=== PATIENT | female | born 1950 | race Caucasian/White ===

== ENCOUNTER 2018-11-09 10:29 | Outpatient (CLI) | payer MEDICARE, BC ==
[2018-11-09 11:25] LABS: #Basophils 0.1 thou/uL (0.0-0.2); #Eosinphils 0.3 thou/uL (0.0-0.7); #Lymphocytes 1.6 thou/uL (1.20-3.40); #Monocytes 0.5 thou/uL (0.11-0.59); #Neutrophils 3.3 thou/uL (1.40-6.50); %Basophils 2.1 % (0.0-1.0); %Eosinophils 5.3 % (0.0-10.0); %Lymphocytes 27.6 % (21.0-51.0); %Monocytes 7.8 % (0.0-10.0); %Neutrophils 57.2 % (42.0-75.0); Hemoglobin 13.1 g/dL (12.0-16.0); Mean Corpuscular HGB CONC 33.4 g/dL (32.0-36.0); Mean Corpuscular Hemoglobin 32.3 pg (27.0-31.0); Mean Corpuscular Volume 96.7 fL (78.0-98.0); Mean Platelet Volume 6.8 fL (7.4-10.4); Platelet Count 258 thou/uL (130-400); RBC Distribution Width 11.6 % (11.5-14.5); Red Blood Cell (RBC) Count 4.06 mill/uL (4.20-5.40); White Blood Cell (WBC) Count 5.8 thou/uL (4.8-10.8)
[2018-11-09 11:43] LABS: Bilirubin Negative (Negative); Blood, Urine Trace (Negative); Clarity Clear (Clear); Glucose, Urine (Dipstick) Normal (Negative); Leukocyte Negative Leu/uL (Negative); Nitrite Negative (Negative); Protein, Urine (Dipstick) Negative (Neg-Trace); RBC/HPF 0-3 HPF (0-3); Squamous Epithelial 0-3 HPF (0-3); Urobilinogen Normal mg/dL (Less than 2)
[2018-11-09 11:45] LABS: Bacteria/HPF None Seen HPF (None Seen)
[2018-11-09 11:49] LABS: Anion Gap 15 mmol/L (10-20); BUN (Urea Nitrogen) 13 mg/dL (9.8-20.1); Calc. Creatinine Clearance 0 mL/min (70-130); Calcium 9.5 mg/dL (7.8-10.44); Carbon Dioxide 25 mmol/L (23-31); Chloride 103 mmol/L (98-107); Estimated GFR-MDRD 77; Glucose 86 mg/dL (80-115); Potassium 4.5 mmol/L (3.5-5.1); Sodium 138 mmol/L (136-145)
== END 2018-11-09 10:30 | disposition home or self-care (01) ==
LOC: LABBT 10:29
PROVIDERS: ATTEND Orthopaedic Surgery Hand Surgery
DX: Z01.818 Encounter for other preprocedural examination (principal); M65.311 Trigger thumb, right thumb; M65.312 Trigger thumb, left thumb
CPT/HCPCS: 80048; 81001; 85025; 93005; 93010

== ENCOUNTER 2018-11-13 05:39 | Day surgery (SDC) | payer MEDICARE, BC ==
[2018-11-09 10:45] VITALS: BMI 21.2
[2018-11-13] MEDS ORDERED: Betamet Acet/Betamet Na Ph 30 MG/5 ML VIAL ONE (06:20)
[2018-11-13] MEDS ORDERED: Bupivacaine PF 0.5% 30 ML VIAL ONE (06:20)
[2018-11-13] MEDS ORDERED: Sodium Chloride 0.9% 10 ML ONE (06:31)
[2018-11-13] MEDS ORDERED: Bacitracin Zinc Ointment 30 gm TUBE ONE (06:31)
[2018-11-13] MEDS ORDERED: Fentanyl 100 MCG/2 ML VIAL ONE ×2 (06:54→08:54)
[2018-11-13] MEDS ORDERED: Ketorolac Tromethamine 30 MG/ML VIAL ONE (08:51)
[2018-11-13] MEDS ORDERED: HYDROcodone/Acetaminophen 5/325 mg Tablet ONE (10:12)
[2018-11-13] MEDS ORDERED: Lidocaine 1% PF 5 ML VIAL ONE (15:39)
[2018-11-13] MEDS ORDERED: Ondansetron PF 4 MG/2 ML Vial ONE (15:39)
[2018-11-13] MEDS ORDERED: PROPOFOL 200 MG/20 ML VIAL ONE (15:39)
[2018-11-13] MEDS ORDERED: diphenhydrAMINE 50 MG/ML VIAL ONE (15:39)
--- NOTE | 2018-11-14 10:24 | OP ---
DATE OF PROCEDURE: 11/13/2018 PREOPERATIVE DIAGNOSES: Right thumb and left thumb A1 benji tenosynovitis/trigger digit, stage 3 to 4. POSTOPERATIVE DIAGNOSES: Right thumb and left thumb A1 benji tenosynovitis/trigger digit, stage 3 to 4. PROCEDURES PERFORMED: 1. Right trigger thumb release. 2. Left trigger thumb release. TOURNIQUET TIME: Left, 11 minutes. Right, 12 minutes. ESTIMATED BLOOD LOSS: Total of 5 mL. INJECTABLE: Yes, 9 mL of 0.5% Marcaine at each site prior to incision. INDICATIONS: Failed conservative treatment to include immobilization, therapy, medication, ointments, creams, phonophoresis and last but not least injections. DESCRIPTION OF PROCEDURE: After successful general LMA technique, the limb was prepped and draped bilaterally. We approached the left first, injected along the zigzag incision longitudinally and then inflated the tourniquet after the limb exsanguination to 250 mmHg pressure. Incision was carried through skin and subcutaneous tissue, identified the radial and ulnar digital nerves. Protected them with a Matt retractor and then dissected down to the lump area. It was a very thickened A1 benji with tight area of the tendon underneath. We released the A1 benji ulnarly. The tendon was seen to expand before our very eyes. We looked underneath the tendon deep. There was no ganglions, masses, or other lesions. There was no significant tenosynovitis away from the tendon benji. We gave 2.5 mL of Celestone, deflated the tourniquet, obtained hemostasis, and closed the wound with interrupted 4-0 nylon in simple pattern. The patient then had a bacitracin, Adaptic, Kerlix, and a sterile Jordan wrap applied. We then turned our attention to the right side where the exact mirror image procedure was done with the same step except for the tourniquet time was at this point 12 minutes instead of 11. The patient then left the operating room without evidence of anesthetic or operative complication. Job ID: [id number]
== END 2018-11-13 10:36 | disposition home or self-care (01) ==
LOC: SDC 05:39
PROVIDERS: ATTEND Orthopaedic Surgery Hand Surgery
PROC: 0LN80ZZ Release Left Hand Tendon, Open Approach (ICD-10-PCS; principal; 2018-11-13)
PROC: 0LN70ZZ Release Right Hand Tendon, Open Approach (ICD-10-PCS; 2018-11-13)
DX: M65.311 Trigger thumb, right thumb (principal); M65.312 Trigger thumb, left thumb; E03.9 Hypothyroidism, unspecified; Z79.899 Other long term (current) drug therapy; Z88.1 Allergy status to other antibiotic agents; Z88.8 Allergy status to other drugs, medicaments and biological substances; Z91.018 Allergy to other foods
CPT/HCPCS: J0131; J0690; J0702; J1885; J3010; J3490; S0020